=== PATIENT | female | born 1945 | race Caucasian/White ===

== ENCOUNTER 2018-06-19 08:12 | Emergency (ER) | payer OTHER ==
[2018-06-19 08:29] VITALS: BP 121/71; PULSE 87; TEMP 99; BMI 24.2
--- NOTE | 2018-06-19 08:59 | PDOC ---
History of Present Illness - General Chief Complaint: Lightheaded Stated Complaint: DIZZY Time Seen by Provider: 06/19/18 08:16 History Source: Patient Exam Limitations: No Limitations - History of Present Illness Initial Comments: 06/19/18 08:46 72 year old female with history of HTN, HLD, on aspirin p/w lower GI bleed. Since yesterday, pt noted that she had painless blood per rectum. She was moving her bowels and noted blood in toilet bowl. Denies constipation, abdominal pain, or straining. Denies fevers, chills. States she does not know how many episodes she had, but has been feeling intermittently lightheaded. Denies headache. Denies LOC. Pt is adherent to her aspirin. Incidentally, also noted a bruise on left arm. She does not recall how she got it. She denies any recent travels, bad foods, sick contacts. Reports a very recent colonoscopy with her doctors that was reportedly negative. Denies family history of IBD, IBS, colon cancer. Past History - Past Medical History Allergies/Adverse Reactions: Allergies Allergy/AdvReac Type Severity Reaction Status Date / Time No Known Allergies Allergy Verified 06/19/18 08:22 Home Medications: Ambulatory Orders Amlodipine Besylate [Norvasc -] 5 mg PO DAILY 06/19/18 Aspirin [ASA -] 81 mg PO DAILY 06/19/18 Benazepril HCl 10 mg PO BID 06/19/18 Docusate Sodium [Colace] 100 mg PO TID #30 capsule 06/19/18 Phenyleph/Mineral Oil/Petrolat [Preparation H Ointment] 1 applic RC BID #1 oint 06/19/18 Simvastatin [Zocor -] 20 mg PO DAILY 06/19/18 CVA: No COPD: No HTN: Yes Hypercholesterolemia: Yes - Suicide/Smoking/Psychosocial Hx Smoking History: Never smoked Hx Alcohol Use: No Drug/Substance Use Hx: No Substance Use Type: None Review of Systems - Review of Systems Able to Perform ROS?: Yes Is the patient limited Frisian proficient: No Constitutional: Yes: Symptoms Reported, See HPI. No: Chills, Diaphoresis, Fever , Loss of Appetite, Malaise, Night Sweats, Weakness, Weight Stable, Unintentional Wgt. Loss, Unexplained wgt Loss HEENTM: No: Symptoms Reported, See HPI, Eye Pain, Blurred Vision, Tearing, Recent change in vision, Double Vision, Cataracts, Ear Pain, Ocular Prothesis, Ear Discharge, Nose Pain, Nose Congestion, Tinnitus, Nose Bleeding, Hearing Loss , Throat Pain, Throat Swelling, Mouth Pain, Dental Problems, Difficulty Swallowing, Mouth Swelling, Other Respiratory: No: Symptoms reported, See HPI, Cough, Orthopnea, Shortness of Breath, SOB with Exertion, SOB at Rest, Stridor, Wheezing, Productive cough, Hemoptysis, Other Cardiac (ROS): No: Symptoms Reported, See HPI, Chest Pain, Edema, Irregular Heart Rate, Lightheadedness, Palpitations, Syncope, Chest Tightness, Other ABD/GI: Yes: Symptoms Reported, See HPI, Rectal Bleeding. No: Abd. Pain w/ defecation, Constipated, Diarrhea, Nausea, Vomiting, Tarry Stools : No: Symptoms Reported, See HPI, Burning, Dysuria, Discharge, Frequency, Flank Pain, Hematuria, Incontinence, Pain, Urgency, Testicular Mass, Testicular Swelling, Lesions, Testicular Pain, Other Musculoskeletal: No: Symptoms Reported, See HPI, Back Pain, Gout, Joint Pain, Joint Swelling, Muscle Pain, Muscle Weakness, Neck Pain, Joint Stiffness, Other Integumentary: No: Symptoms Reported, See HPI, Bruising, Change in Color, Change in Hair/Nails, Dryness, Erythema, Flushing, Lesions, Lumps, Pallor, Pruritus, Rash, Sweating, Other Neurological: No: Symptoms reported, See HPI, Headache, Numbness, Paresthesia, Pre-Existing Deficit, Seizure, Tingling, Tremors, Weakness, Unsteady Gait, Ataxia, Dizziness, Other Psychiatric: No: Anxiety, Depression, Frequent Crying, Stressors, Sleep Pattern Change, Emotional Problems, Mood Swings, Change in Appetite, Other Endocrine: No: Symptoms Reported, See HPI, Excessive Sweating, Flushing, Intolerance to Cold, Intolerance to Heat, Increased Hunger, Increased Thirst, Increased Urine, Unexplained Weight Gain, Unexplained Weight Loss, Change in Weight, Other Hematologic/Lymphatic: Yes: See HPI, Easy Bruising All Other Systems: Reviewed and Negative *Physical Exam - Vital Signs Last Vital Signs Temp Pulse Resp BP Pulse Ox 99.0 F 87 18 121/71 100 06/19/18 08:12 06/19/18 08:21 06/19/18 08:12 06/19/18 08:21 06/19/18 08:12 - Physical Exam General Appearance: Yes: Nourished, Appropriately Dressed. No: Apparent Distress HEENT: positive: EOMI, Normal Voice Neck: positive: Trachea midline, Supple. negative: Tender Respiratory/Chest: positive: Lungs Clear, Normal Breath Sounds. negative: Respiratory Distress, Accessory Muscle Use Cardiovascular: positive: Regular Rhythm, Regular Rate, S1, S2. negative: JVD, Murmur, Bradycardia, Tachycardia Comments:: 06/19/18 09:02 ~2x3 cm left upper arm ecchymosis. RECTAL: small external hemorrhoids and red blood on glove Gastrointestinal/Abdominal: positive: Flat, Soft. negative: Tender, Organomegaly, Pulsatile Mass Rectal Exam: positive: hemorrhoids, other Musculoskeletal: positive: Normal Inspection Extremity: positive: Normal Capillary Refill, Normal Inspection Integumentary: positive: Normal Color, Dry, Warm, Ecchymosis Heart Score/ECG Review #1 ECG reviewed & interpreted by me at: 09:00 06/19/18 09:13 NSR 67, RBBB, no std/alivia, normal axis, normal intervals, QTC 481 msec ED Treatment Course - LABORATORY CBC & Chemistry Diagram: 06/19/18 08:55 06/19/18 08:55 Medical Decision Making - Medical Decision Making 06/19/18 09:02 Vital Signs Temp Pulse Resp BP Pulse Ox 99.0 F 87 18 121/71 100 06/19/18 08:12 06/19/18 08:21 06/19/18 08:12 06/19/18 08:21 06/19/18 08:12 Pt with lower GI bleed and lightheadedness. I suspect that the lightheadedness is likely secondary to the LGIB. Differential for LGIB includes hemorrhoids, diverticular bleed, malignancy ( less likely with a recent negative colonoscopy). Will obtain ECG, labs, stool occult and consult GI. 06/19/18 10:06 CBC, BMP 06/19/18 08:55 06/19/18 08:55 CMP Sodium 138 mmol/L (136-145) 06/19/18 08:55 Potassium 3.9 mmol/L (3.5-5.1) 06/19/18 08:55 Chloride 106 mmol/L (98-107) 06/19/18 08:55 Carbon Dioxide 24 mmol/L (22-28) 06/19/18 08:55 Anion Gap 8 (8-16) 06/19/18 08:55 BUN 28 mg/dl (7-18) H 06/19/18 08:55 Creatinine 0.8 mg/dl (0.6-1.3) 06/19/18 08:55 Creat Clearance w eGFR > 60 (>60) 06/19/18 08:55 Random Glucose 140 mg/dl (74-106) H 06/19/18 08:55 Calcium 9.2 mg/dl (8.4-10.2) 06/19/18 08:55 Total Bilirubin 0.9 mg/dl (0.2-1.0) 06/19/18 08:55 AST 25 U/L (10-42) 06/19/18 08:55 ALT 19 U/L (10-40) 06/19/18 08:55 Alkaline Phosphatase 65 U/L (32-92) 06/19/18 08:55 Troponin I < 0.03 ng/ml (0.00-0.06) 06/19/18 08:55 Total Protein 7.0 g/dl (6.4-8.3) 06/19/18 08:55 Albumin 4.1 g/dl (3.5-5.0) 06/19/18 08:55 Urine Test Results Urine Color Yellow 06/19/18 08:41 Urine Appearance Clear 06/19/18 08:41 Urine pH 6.5 (4.5-8) 06/19/18 08:41 Ur Specific [place] 1.025 (1.005-1.025) 06/19/18 08:41 Urine Protein 1+ (NEGATIVE) H 06/19/18 08:41 Urine Glucose (UA) Negative (NEGATIVE) 06/19/18 08:41 Urine Ketones Negative (NEGATIVE) 06/19/18 08:41 Urine Blood Trace-lysed (NEGATIVE) H 06/19/18 08:41 Urine Nitrite Negative (NEGATIVE) 06/19/18 08:41 Urine Bilirubin Negative (NEGATIVE) 06/19/18 08:41 Ur Leukocyte Esterase 1+ (NEGATIVE) H 06/19/18 08:41 Stool occult positive. UA reviewed, however, has no dysuria. Will not treat at this time, even though with slightly elevated WBC (no fevers, chills or dysuria) Labs reviewed. Hgb stable. No further bleeding. Pt had a colonoscopy last year, which was reportedly negative. Case discussed with GI Dr. Hagan. Agrees that this is likely to be hemorrhoids. Will write prescriptions for hemorrhoids. However, states that patient should follow up as an outpatient next week to be evaluated for potential colonoscopy. The patient agrees with the plan. There is no further bleeding. Pt given strict return precautions including worsening bleed, chest pain, SOB. *DC/Admit/Observation/Transfer Diagnosis at time of Disposition: Lower GI bleed - Discharge Dispostion Disposition: HOME Condition at time of disposition: Stable Decision to Admit order: No - Prescriptions Prescriptions: Docusate Sodium [Colace] 100 mg PO TID #30 capsule Phenyleph/Mineral Oil/Petrolat [Preparation H Ointment] 1 applic RC BID #1 oint - Referrals Referrals: Erica Castorena [Primary Care Provider] - Titi Hagan MD [Staff Physician] - - Patient Instructions Printed Discharge Instructions: DI for Hemorrhoids, Gastrointestinal Bleeding Additional Instructions: Please use preparation H and colace as prescribed. Sitz bath 3 times a day. It is important to be evaluated for an outpatient colonoscopy. Call to schedule an appointment with GI. If you notice worsening bleeding, please return to the ER. - Post Discharge Activity
[2018-06-19 09:13] LABS: PH,URINE 6.5 (4.5-8); URINE APPEARANCE Clear; URINE BILIRUBIN Negative (NEGATIVE); URINE COLOR Yellow; URINE GLUCOSE (UA) Negative (NEGATIVE); URINE KETONE Negative (NEGATIVE); URINE NITRITE Negative (NEGATIVE); URINE UROBILINOGEN 0.2 (0.2-1.0)
[2018-06-19 09:19] LABS: ALBUMIN 4.1 g/dl (3.5-5.0); ALK PHOS 65 U/L (32-92); ANION GAP 8 (8-16); BILIRUBIN,TOTAL 0.9 mg/dl (0.2-1.0); BLOOD UREA NITROGEN 28 mg/dl (7-18); CALCIUM 9.2 mg/dl (8.4-10.2); CHLORIDE 106 mmol/L (98-107); CO2 24 mmol/L (22-28); CREATININE 0.8 mg/dl (0.6-1.3); GLUCOSE,RANDOM 140 mg/dl (74-106); POTASSIUM 3.9 mmol/L (3.5-5.1); SGOT/AST 25 U/L (10-42); SGPT/ALT 19 U/L (10-40); SODIUM 138 mmol/L (136-145)
[2018-06-19 09:20] LABS: BASO % 0.1 % (0-2.0); HEMATOCRIT 40.2 % (32.4-45.2); HEMOGLOBIN 13.5 GM/dl (10.7-15.3); LYMPH % 9.9 % (8-40); MCH 30.2 pg (25.7-33.7); MCHC 33.6 g/dl (32.0-36.0); MEAN CELL VOLUME 89.9 fl (80-96); MEAN PLT VOLUME 9.2 fl (7.5-11.1); PLATELET COUNT 183 K/MM3 (134-434); RBC 4.47 M/mm3 (3.60-5.2); RDW 13.4 % (11.6-15.6); WHITE BLOOD COUNT 14.8 K/mm3 (4.0-10.8)
[2018-06-19 09:32] LABS: URINE LEUK ESTERASE 1+ (NEGATIVE); URINE PROTEIN 1+ (NEGATIVE)
[2018-06-19 09:46] LABS: ACTIVATED PTT 24.8 SECONDS (25.2-36.5)
[2018-06-19 09:54] LABS: INR 1.06 (0.82-1.09); PROTHROMBIN TIME (PATIENT) 11.9 SEC (10.2-13.0)
[2018-06-19 14:09] LABS: EPI CELLS NONE SEEN /HPF; URINE BACTERIA NONE SEEN /hpf (NEGATIVE); URINE CRYSTALS NONE SEEN /hpf (NONE SEEN); URINE RBC 0-2 /hpf (0-3); URINE WBC 0-2 (0-5)
--- NOTE | 2018-06-20 15:00 | EKG ---
Test Reason : Blood Pressure : / mmHG Vent. Rate : 067 BPM Atrial Rate : 067 BPM P-R Int : 158 ms QRS Dur : 146 ms QT Int : 456 ms P-R-T Axes : 055 045 032 degrees QTc Int : 481 ms NORMAL SINUS RHYTHM RIGHT BUNDLE BRANCH BLOCK ABNORMAL ECG NO PREVIOUS ECGS AVAILABLE Confirmed by ADAMS CASTILLO MD ([id number]) on 06/20/2018 2:59:55 PM Referred By: Confirmed By:ADAMS CASTILLO MD
== END 2018-06-19 10:18 | disposition home or self-care (01) ==
LOC: FER 08:12 → SUPCPDRO 08:12 → FER 10:18
DX: K92.2 Gastrointestinal hemorrhage, unspecified (principal); I10 Essential (primary) hypertension; E78.5 Hyperlipidemia, unspecified; Z79.82 Long term (current) use of aspirin
CPT/HCPCS: 36415; 80053; 81003; 81015; 82272; 84484; 85025; 85610; 85730; 87086; 93005; 99282-25